=== PATIENT | female | born 1990 | race African-American/Black ===

== ENCOUNTER 2023-11-30 01:37 | Emergency (ER) | payer OTHER ==
[2023-11-30 01:45] VITALS: BP 132/87; PULSE 108; RESP 18; TEMP 98; BMI 42.9
[2023-11-30] MEDS ORDERED: LIDOCAINE 2.5%/PRILOCAINE 2.5% (5 Gram/TUBE) TP ONE (06:08)
== END 2023-11-30 06:58 | disposition home or self-care (01) ==
LOC: JER 01:37
PROC: 0HQ1XZZ Repair Face Skin, External Approach (ICD-10-PCS; principal; 2023-11-30)
DX: S01.81XA Laceration without foreign body of other part of head, initial encounter (principal); S01.511A Laceration without foreign body of lip, initial encounter; Y04.0XXA Assault by unarmed brawl or fight, initial encounter; R00.0 Tachycardia, unspecified
CPT/HCPCS: 70450-TC; 70486-TC; 72125-TC; 99284-25

== ENCOUNTER 2024-11-11 19:12 | Inpatient (IN) | payer OTHER ==
[2024-11-11 20:37] VITALS: BMI 36.1
[2024-11-11] MEDS ORDERED: BENZOCAINE/MENTHOL (CHLORASEPTIC ) LOZENGE MM PRN (23:25)
[2024-11-11] MEDS ORDERED: POLYETHYLENE GLYCOL (HEALTHYLAX) 3350 17 GM PACKET PO PRN (23:25)
[2024-11-11] MEDS ORDERED: guaiFENesin 600 MG TABLET.ER (FP) PO PRN (23:25)
[2024-11-11] MEDS ORDERED: DICYCLOMINE HCL 10 MG CAPSULE PO PRN (23:25)
[2024-11-11] MEDS ORDERED: ONDANSETRON *ODT* 4 MG TABLET SL PRN (23:25)
[2024-11-11] MEDS ORDERED: IBUPROFEN 400 MG TABLET (FP) PO PRN (23:25)
[2024-11-11] MEDS ORDERED: IBUPROFEN 600 MG TABLET (FP) PO PRN (23:25)
[2024-11-11] MEDS ORDERED: hydrOXYzine PAMOATE 25 MG CAPSULE (FP) PO PRN (23:25)
[2024-11-11] MEDS ORDERED: BISMUTH SUBSALICYLATE 524 MG/30 ML PO PRN (23:25)
[2024-11-11] MEDS ORDERED: LOPERAMIDE HCL 2 MG CAPSULE PO PRN (23:25)
[2024-11-11] MEDS ORDERED: MAGNESIUM HYDROX 2400MG/30ML ORAL SUSPENSION 30 ML CUP PO PRN (23:25)
[2024-11-11] MEDS ORDERED: MAG HYDROX/AL HYDROX/SIMETH 30 ML UNIT-DOSE CUP PO PRN (23:25)
[2024-11-11] MEDS ORDERED: BENZONATATE 200 MG CAPSULE PO PRN (23:25)
[2024-11-11] MEDS ORDERED: NALOXONE (NARCAN) HCL 4 MG/0.1 ML SPRAY NS PRN (23:25)
[2024-11-12] MEDS ORDERED: chlordiazePOXIDE HCL 25 MG CAPSULE PO PRN (00:42)
[2024-11-12] MEDS: chlordiazePOXIDE HCL 25 MG CAPSULE PO SCH ×2 (05:55→17:32)
[2024-11-12] MEDS: PRENATAL VITAMINS W/ FOLIC ACID TABLET (FP) PO SCH (10:35)
[2024-11-12 13:42] LABS: CHLORIDE 102 mmol/L (98-107); POTASSIUM 4.3 mmol/L (3.5-5.1); SODIUM 138 mmol/L (136-145)
[2024-11-12 13:43] LABS: HEMOGLOBIN 10.1 GM/dL (10.7-15.3); MCHC 32.7 g/dl (32.0-36.0); MEAN CELL VOLUME 91.8 fl (80-96); MEAN PLT VOLUME 7.8 fl (7.5-11.1); PLATELET COUNT 292 10^3/uL (134-434); RBC 3.38 M/mm3 (3.60-5.2); RDW 22.3 % (11.6-15.6); WHITE BLOOD COUNT 3.4 K/mm3 (4.0-10.0)
[2024-11-12 13:50] LABS: BLOOD UREA NITROGEN 9.9 mg/dL (7-18); CALCIUM 9.4 mg/dL (8.5-10.1)
[2024-11-12 13:51] LABS: ALBUMIN 3.7 g/dl (3.4-5.0); ANION GAP 6 mmol/L (4-13); CO2 30 mmol/L (21-32); GLUCOSE,RANDOM 93 mg/dL (74-106)
[2024-11-12 13:52] LABS: CREATININE 0.6 mg/dL (0.55-1.3)
[2024-11-12 13:53] LABS: SGOT/AST 29 U/L (15-37); SGPT/ALT 18 U/L (13-61)
[2024-11-12 13:54] LABS: ALK PHOS 93 U/L (45-117)
[2024-11-12 13:55] LABS: BILIRUBIN,TOTAL 0.8 mg/dL (0.2-1)
[2024-11-12 13:56] LABS: TOT PROT 7.9 g/dl (6.4-8.2)
[2024-11-12] MEDS: ACETAMINOPHEN 325 MG TABLET (FP) PO PRN (17:35)
[2024-11-12] MEDS: MELATONIN 5 MG TABLETS PO SCH (22:26)
[2024-11-12] MEDS: THIAMINE 100 MG TABLET PO SCH (22:26)
[2024-11-13] MEDS: chlordiazePOXIDE HCL 25 MG CAPSULE PO SCH (05:50)
[2024-11-13] MEDS: NALTREXONE HCL 50 MG TABLET PO ONE (12:34)
[2024-11-14] MEDS ORDERED: chlordiazePOXIDE HCL 10 MG CAPSULE PO PRN
[2024-11-14] MEDS: chlordiazePOXIDE HCL 10 MG CAPSULE PO SCH (05:47)
[2024-11-14] MEDS: NALTREXONE HCL 50 MG TABLET PO SCH (10:24)
[2024-11-15] MEDS: chlordiazePOXIDE HCL 10 MG CAPSULE PO SCH (06:26)
[2024-11-15] MEDS: METHOCARBAMOL 500 MG TABLET PO PRN (22:18)
[2024-11-16] MEDS: chlordiazePOXIDE HCL 10 MG CAPSULE PO ONE (05:56)
[2024-11-16 09:42] VITALS: BP 137/93; PULSE 70; RESP 16; TEMP 97.6
== END 2024-11-16 10:30 | disposition home or self-care (01) | DRG 775 ==
LOC: YASAS 19:12 → Y6N 23:51
PROVIDERS: ADMIT Allergy & Immunology; ATTEND Allergy & Immunology
PROC: HZ2ZZZZ Detoxification Services for Substance Abuse Treatment (ICD-10-PCS; principal; 2024-11-11)
DX: F10.230 Alcohol dependence with withdrawal, uncomplicated (principal); F10.282 Alcohol dependence with alcohol-induced sleep disorder; F10.280 Alcohol dependence with alcohol-induced anxiety disorder; F10.24 Alcohol dependence with alcohol-induced mood disorder; F32.9 Major depressive disorder, single episode, unspecified; F43.10 Post-traumatic stress disorder, unspecified; F90.9 Attention-deficit hyperactivity disorder, unspecified type; Z62.810 Personal history of physical and sexual abuse in childhood; Z91.410 Personal history of adult physical and sexual abuse; Z63.0 Problems in relationship with spouse or partner; Z63.8 Other specified problems related to primary support group
CPT/HCPCS: 36415; 80053; 80305; 80307; 81025; 85027; 86780; 93005; 93010